=== PATIENT | female | born 1990 | race Hispanic/Latino ===

== ENCOUNTER 2017-05-14 10:17 | Emergency (ER) | payer OTHER ==
[2017-05-14 10:17] VITALS: BMI 21.5
[2017-05-14 10:29] VITALS: BP 126/78; PULSE 74; RESP 20
[2017-05-14 10:36] VITALS: TEMP 97; O2SAT 98
--- NOTE | 2017-05-14 11:04 | ED PDOC ---
HPI: Abdomen Time Seen by Provider: 05/14/17 10:33 Chief Complaint (Nursing): Abdominal Pain Chief Complaint (Provider): Vaginitis History Per: Patient Additional Complaint(s): 26 yo female, no PMH, presents to ED with complaints of vaginal itching, irritation and dysuria x 2 weeks now Pt seen and elvauated at [facility] last week and was given Keflex for UTI. Pt reports no pelvic was done. No fever or chills. no abdominal pain. no concern for STI. Pt used Monistat 1 day (4 days ago) no relief obtained. Past Medical History Reviewed: Nursing Documentation, Vital Signs Vital Signs: Last Vital Signs Temp 97 F L 05/14/17 10:32 Pulse 74 05/14/17 10:32 Resp 20 05/14/17 10:32 BP 126/78 05/14/17 10:32 Pulse Ox 98 05/14/17 11:04 - Medical History PMH: Asthma (history of asthma), Migraine - Family History Family History: States: Unknown Family Hx - Living Arrangements Living Arrangements: With Family - Social History Current smoker - smoking cessation education provided: No Alcohol: Social Drugs: Denies - Immunization History Hx Tetanus Toxoid Vaccination: Yes Hx Influenza Vaccination: Yes Hx Pneumococcal Vaccination: Yes - Home Medications Home Medications: Ambulatory Orders Medication Instructions Recorded Albuterol Sulfate [Albuterol 2 puff IH QID #1 inh 07/21/13 Sulfate Hfa] Aluminum Hydroxide/Magnesium H 30 ml PO BID PRN #120 ml 07/21/13 [Maalox 30 ml] Metoclopramide [Reglan] 1 tab PO TID PRN #25 tab 07/21/13 Spacer, Inhalation [Aerochamber] 1 inh IH QID #1 dev 07/21/13 Amoxicillin/Clavulanate [Augmentin 1 tab PO BID #14 tab 01/26/14 875 MG-125 MG] Ondansetron [Zofran] 4 mg PO Q8H PRN #30 tab 01/26/14 Ondansetron Hydrochloride 4 mg PO Q6 PRN #12 tab 03/11/14 Ibuprofen [Motrin] 600 mg PO Q6 PRN #20 tab 01/23/15 Fexofenadine HCl [JacyNf] 1 tab PO DAILY #15 tab 06/16/15 Oseltamivir Phosphate [Tamiflu] 1 tab PO BID #10 capsule 06/16/15 Pseudoephedrine [Sudafed] 1 tab PO Q6 PRN #30 tab 06/16/15 Ibuprofen [Motrin] 600 mg PO Q6 #20 tab 02/03/16 Metronidazole [Metrogel-Vaginal] 1 ea VG HS #5 gel 05/14/17 Sulfamethoxazole/Trimethoprim 1 tab PO BID 5 Days tab 05/14/17 [Bactrim DS 800 mg-160 mg] - Allergies Allergies/Adverse Reactions: Allergies Allergy/AdvReac Type Severity Reaction Status Date / Time No Known Allergies Allergy Verified 08/02/14 19:04 Review of Systems ROS Statement: Except As Marked, All Systems Reviewed And Found Negative Genitourinary Female: Positive for: Dysuria, Frequency, Vaginal Discharge Physical Exam - Reviewed Nursing Documentation Reviewed: Yes Vital Signs Reviewed: Yes - Physical Exam Appears: Positive for: Well, Non-toxic, No Acute Distress Head Exam: Positive for: ATRAUMATIC, NORMAL INSPECTION, NORMOCEPHALIC Skin: Positive for: Normal Color, Warm, DRY Eye Exam: Positive for: EOMI, Normal appearance, PERRL ENT: Positive for: Normal ENT Inspection Neck: Positive for: Normal, Painless ROM Cardiovascular/Chest: Positive for: Regular Rate, Rhythm Respiratory: Positive for: CNT, Normal Breath Sounds Gastrointestinal/Abdominal: Positive for: Normal Exam, Bowel Sounds, Soft Pelvic Exam: Positive for: External Exam Normal, Discharge (foul smelling). Negative for: No Cerv. Motion Tender, No Masses, Active Bleeding Back: Positive for: Normal Inspection Extremity: Positive for: Normal ROM Neurologic/Psych: Positive for: Alert, Oriented - ECG O2 Sat by Pulse Oximetry: 98 Medical Decision Making Medical Decision Making: Dip (+) Leuks and blood, (-) Nites Genital culture sent, as well as GC/C Given RX for bactrim and Metrogel for BV OB follow up advised Disposition - Clinical Impression Clinical Impression: UTI (urinary tract infection), Vaginitis - Patient ED Disposition Is Patient to be Admitted: No - Disposition Disposition: Routine/Home Disposition Time: 12:52 Condition: FAIR Prescriptions: Metronidazole [Metrogel-Vaginal] 1 ea VG HS #5 gel Sulfamethoxazole/Trimethoprim [Bactrim DS 800 mg-160 mg] 1 tab PO BID 5 Days tab Instructions: Urinary Tract Infection in Women (ED), Vaginitis (ED) Forms: [facility] (Urdu), [facility] ED School/Work Excuse
[2017-05-14 12:02] LABS: SQUAMOUS EPITHIAL 16 /hpf (0-5); URINE BACTERIA OCC (<OCC); URINE BILIRUBIN NEGATIVE (NEGATIVE); URINE BLOOD NEGATIVE (NEGATIVE); URINE CLARITY CLOUDY (Clear); URINE COLOR YELLOW (YELLOW); URINE GLUCOSE (UA) NEG (Normal); URINE LEUKOCYTE ESTERASE LARGE Leu/uL (Negative); URINE NITRATE NEGATIVE (NEGATIVE); URINE PROTEIN NEGATIVE (NEGATIVE); URINE UROBILINOGEN 0.2-1.0 mg/dL (0.2-1.0)
== END 2017-05-14 13:30 | disposition home or self-care (01) ==
LOC: H.ER 10:17
DX: N39.0 Urinary tract infection, site not specified (principal); N76.0 Acute vaginitis; J45.909 Unspecified asthma, uncomplicated

== ENCOUNTER 2017-06-22 00:29 | Emergency (ER) | payer OTHER ==
[2017-06-22 00:46] VITALS: BMI 29.1
[2017-06-22] MEDS ORDERED: Sodium Chloride 0.9% 1,000 ML IV STA (01:02)
[2017-06-22 01:17] LABS: VENOUS BLOOD GAS BASE EXCESS -0.7 mmol/L (0.0-2.0); VENOUS BLOOD GAS PCO2 36 mmHg (40-60); VENOUS BLOOD GAS PO2 23 mm/Hg (30-55); VENOUS BLOOD PH 7.42 (7.32-7.43)
[2017-06-22 01:20] LABS: BASO % 0.1 % (0.0-2.0); LYMPH # 0.7 K/uL (1.0-4.3); LYMPH % 4.2 % (20.0-40.0); MEAN CELL VOLUME 88.9 fl (81.0-99.0); MEAN CORPUSCULAR HEMOGLOBIN 29.3 pg (27.0-31.0); MEAN PLATELET VOLUME 7.5 fl (7.2-11.7); MONO # 1.6 K/uL (0.0-0.8); MONO % 9.3 % (0.0-10.0); NEUT # 14.6 K/uL (1.8-7.0); NEUT % 86.4 % (50.0-75.0); PLATELET COUNT 188 K/uL (130-400); RBC 4.43 Mil/uL (3.80-5.20); RED CELL DISTRIBUTION WIDTH 13.5 % (11.5-14.5); WHITE BLOOD COUNT 16.9 K/uL (4.8-10.8)
[2017-06-22 01:31] LABS: BLOOD UREA NITROGEN 18 mg/dl (7-17); CALCIUM 8.6 mg/dL (8.4-10.2); GFR AFRICAN-AMERICAN > 60; GFR NON-AFRICAN AMERICAN 54
--- NOTE | 2017-06-22 02:07 | ED PDOC ---
HPI: General Adult Time Seen by Provider: 06/22/17 00:56 Chief Complaint (Nursing): Flu-like Symptoms Chief Complaint (Provider): Flu-like Symptoms History Per: Patient History/Exam Limitations: no limitations Onset/Duration Of Symptoms: Days (x3 days) Current Symptoms Are (Timing): Still Present Additional Complaint(s): 26 y/o female presents to the ED complaining of feeling fevers, chills, body aches, fatigue x 3 days. Also complaining of sore throat cough with productive of yellow-green phlegm and chest pain when coughing. Reports one episode of vomiting .Patient states that all she wants to do is seep. Denies diarrhea or any further medical complaints. PMD: Marisa Bai MD Past Medical History Reviewed: Historical Data, Nursing Documentation, Vital Signs Vital Signs: Last Vital Signs Temp 98.9 F 06/22/17 04:02 Pulse 91 H 06/22/17 04:02 Resp 16 06/22/17 04:02 BP 110/57 L 06/22/17 04:02 Pulse Ox 98 06/22/17 05:10 - Medical History PMH: Asthma (history of asthma), Migraine - Surgical History Other surgeries: Ectopic , patella dislocation right knee - Family History Family History: States: Unknown Family Hx - Social History Current smoker - smoking cessation education provided: Yes (Some days smoker, Number of years smokin) Alcohol: None Drugs: Denies - Immunization History Hx Tetanus Toxoid Vaccination: Yes Hx Influenza Vaccination: Yes Hx Pneumococcal Vaccination: Yes - Home Medications Home Medications: Ambulatory Orders Medication Instructions Recorded Benzonatate [Tessalon Perle] 100 mg PO TID #20 capsule 06/22/17 Ketorolac Tromethamine [Toradol] 10 mg PO BID #30 tab 06/22/17 Oseltamivir Phosphate [Tamiflu] 75 mg PO BID 5 Days #10 capsule 06/22/17 - Allergies Allergies/Adverse Reactions: Allergies Allergy/AdvReac Type Severity Reaction Status Date / Time No Known Allergies Allergy Verified 06/22/17 00:46 Review of Systems ROS Statement: Except As Marked, All Systems Reviewed And Found Negative (As per HPI, otherwise negative) Constitutional: Positive for: Fever, Chills, Other (Body aches and fatigue) ENT: Positive for: Throat Swelling (sore throat) Respiratory: Positive for: Cough (chcest pain while coughing) Gastrointestinal: Positive for: Vomiting. Negative for: Diarrhea Physical Exam - Reviewed Nursing Documentation Reviewed: Yes Vital Signs Reviewed: Yes - Physical Exam Appears: Positive for: Non-toxic, Uncomfortable (Patient appears tired) Head Exam: Positive for: ATRAUMATIC, NORMAL INSPECTION, NORMOCEPHALIC Skin: Positive for: Normal Color, Warm, Dry Eye Exam: Positive for: EOMI, Normal appearance, PERRL ENT: Positive for: Normal ENT Inspection Neck: Positive for: Normal, Painless ROM, Supple Cardiovascular/Chest: Positive for: Regular Rate, Rhythm, Tachycardia. Negative for: Murmur Respiratory: Positive for: Normal Breath Sounds. Negative for: Accessory Muscle Use, Respiratory Distress Gastrointestinal/Abdominal: Positive for: Normal Exam, Bowel Sounds, Soft Back: Positive for: Normal Inspection Extremity: Positive for: Normal ROM. Negative for: Deformity Neurologic/Psych: Positive for: Alert, supervisor hardboard II-XII, Oriented (x3), Gait (steady) . Negative for: Motor/Sensory Deficits - Laboratory Results Result Diagrams: 06/22/17 01:17 06/22/17 01:17 - ECG O2 Sat by Pulse Oximetry: 98 (RA) Pulse Ox Interpretation: Normal Medical Decision Making Medical Decision Making: Time: 01:02 Initial Impression: influenza Plan: EKG CCB w/ differential Chest x-ray Acetaminophen 975mg PO Sodium chloride 1L IV Ondansetron 4mg IVP Blood culture Influenza A B Reevalaution Time: 05:09 Upon provider reevaluation patient is feeling better, is medically stable, and requires no further treatment in the ED at this time. Patient will be discharged home. Counseling was provided and all questions were answered regarding diagnosis and need for follow up with Dr. Marisa Bai. There is agreement to discharge plan. Return if symptoms persist or worsen. Clinical Impression: Influenza Scribe Attestation: Documented by Mayco Felix acting as a scribe for Dakota Conroy MD. Scribe Attestation: All medical record entries made by the Scribe were at my direction and personally dictated by me. I have reviewed the chart and agree that the record accurately reflects my personal performance of the history, physical exam, medical decision making, and the department course for this patient. I have also personally directed, reviewed, and agree with the discharge instructions and disposition. Disposition - Clinical Impression Clinical Impression: Influenza - Disposition Referrals: Marisa Bai MD [Family Provider] - Disposition: Routine/Home Disposition Time: 05:00 Condition: IMPROVED Prescriptions: Benzonatate [Tessalon Perle] 100 mg PO TID #20 capsule Ketorolac Tromethamine [Toradol] 10 mg PO BID #30 tab Oseltamivir Phosphate [Tamiflu] 75 mg PO BID 5 Days #10 capsule Instructions: Influenza (ED) Forms: [facility] ([place])
[2017-06-22] MEDS ORDERED: Potassium Chloride 20 mEq ER Tab PO ONE ×3 (02:20→02:55)
[2017-06-22 02:24] VITALS: RESP 16
[2017-06-22 02:45] LABS: BANDS 4 % (0-2); LYMPHOCYTE 8 % (20-50); NEUTROPHIL 78 % (42-75); TOTAL CELLS COUNTED 100
[2017-06-22 02:46] LABS: EOSINOPHIL 1 % (0-7); MONOCYTE 9 % (0-10); PLATELET ESTIMATE NORMAL (NORMAL)
[2017-06-22 04:03] VITALS: BP 110/57; PULSE 91; TEMP 98.9; O2SAT 98
[2017-06-22] MEDS ORDERED: Promethazine/Cod 6.25mg-10mg/5ml Syr UD PO STA (04:05)
[2017-06-22] MEDS ORDERED: Promethazine/Cod 6.25mg-10mg/5ml Syr UD ONE (04:43)
--- NOTE | 2017-06-22 09:18 | RAD ---
HISTORY: fever, cough, cp COMPARISON: Comparison chest 06/13/2011. FINDINGS: LUNGS: Poor inspiration with low lung volumes, crowded bronchovascular markings and mild bibasilar atelectasis. . Small granuloma right lung base again noted. PLEURA: No significant pleural effusion identified, no pneumothorax apparent. CARDIOVASCULAR: Normal. OSSEOUS STRUCTURES: No significant abnormalities. VISUALIZED UPPER ABDOMEN: Normal. OTHER FINDINGS: None. IMPRESSION: Send Poor inspiration with low lung volumes, crowded bronchovascular markings and mild bibasilar atelectasis. .
--- NOTE | 2017-06-22 10:29 | CARD ---
APPROVED REPORT EKG Measurement Heart [id number] <Conclusion> Sinus tachycardia Otherwise normal ECG
== END 2017-06-22 05:30 | disposition home or self-care (01) ==
LOC: H.ER 00:29
DX: J11.1 Influenza due to unidentified influenza virus with other respiratory manifestations (principal); R11.10 Vomiting, unspecified; J45.909 Unspecified asthma, uncomplicated; R53.83 Other fatigue
CPT/HCPCS: 71045; 80048; 81025; 82803; 85025; 87040; 87804; 93005; 96361; 96374; 96375; 99283; J1885; J2405; J7040

== ENCOUNTER 2018-04-21 08:01 | Day surgery (SDC) | payer OTHER ==
[2018-04-21 09:00] VITALS: BMI 31.1
[2018-04-21] MEDS ORDERED: Lactated Ringer's 500 ML IV ONE (09:06)
[2018-04-21] MEDS ORDERED: Midazolam 2 MG/2 ML VIAL ONE (10:31)
[2018-04-21] MEDS ORDERED: Propofol 10 mg/ml Inj (20 ML) ONE ×2 (10:31→10:54)
[2018-04-21 11:09] VITALS: TEMP 97
[2018-04-21 11:23] VITALS: BP 116/65; PULSE 79; RESP 20; O2SAT 100
== END 2018-04-21 11:38 | disposition home or self-care (01) ==
LOC: H.ENDO 08:01
PROVIDERS: ATTEND Internal Medicine Gastroenterology
DX: K92.2 Gastrointestinal hemorrhage, unspecified (principal); R06.83 Snoring; G43.909 Migraine, unspecified, not intractable, without status migrainosus; K62.89 Other specified diseases of anus and rectum; K64.9 Unspecified hemorrhoids; R19.5 Other fecal abnormalities
CPT/HCPCS: 45380; 88305; J2001; J2250; J2704; J7120